=== PATIENT | female | born 1955 | race Caucasian/White ===

== ENCOUNTER 2023-08-29 11:24 | Outpatient (RCR) | payer MEDICARE, OTHER, SELFPAY ==
[2023-08-29 11:35] VITALS: BP 113/65
[2023-08-29] MEDS: XOLAIR 150 MG SC (11:45)
== END 2023-09-17 23:59 | disposition home or self-care (01) ==
LOC: OID 11:24
PROVIDERS: ATTENDING PHYSICIAN Internal Medicine; FAMILY PHYSICIAN Student in an Organized Health Care Education/Training Program
DX: J45.50 Severe persistent asthma, uncomplicated (principal)
CPT/HCPCS: 96372; J2357

== ENCOUNTER → 2023-10-07 16:14 | Outpatient (REF) | payer MEDICARE, OTHER, SELFPAY | LOC: REG 16:14 | PROVIDERS: ATTENDING PHYSICIAN Student in an Organized Health Care Education/Training Program; FAMILY PHYSICIAN Student in an Organized Health Care Education/Training Program | DX: J47.1 Bronchiectasis with (acute) exacerbation (principal) | CPT/HCPCS: 87070; 87071; 87186; 87205 ==

== ENCOUNTER → 2023-10-21 12:52 | Outpatient (REF) | payer MEDICARE, OTHER, SELFPAY | LOC: REG 12:52 | PROVIDERS: ATTENDING PHYSICIAN Student in an Organized Health Care Education/Training Program; FAMILY PHYSICIAN Student in an Organized Health Care Education/Training Program; REFERRING PHYSICIAN Internal Medicine Critical Care Medicine | DX: J47.1 Bronchiectasis with (acute) exacerbation (principal) | CPT/HCPCS: 87015; 87116 ==

== ENCOUNTER → 2023-10-21 16:19 | Outpatient (REF) | payer MEDICARE, OTHER, SELFPAY | LOC: REG 16:19 | PROVIDERS: ATTENDING PHYSICIAN Student in an Organized Health Care Education/Training Program; FAMILY PHYSICIAN Student in an Organized Health Care Education/Training Program; REFERRING PHYSICIAN Internal Medicine Critical Care Medicine | DX: J47.1 Bronchiectasis with (acute) exacerbation (principal) | CPT/HCPCS: 87015; 87116 ==

== ENCOUNTER → 2023-10-23 14:50 | Outpatient (REF) | payer MEDICARE, OTHER, SELFPAY | LOC: REG 14:50 | PROVIDERS: ATTENDING PHYSICIAN Student in an Organized Health Care Education/Training Program; FAMILY PHYSICIAN Student in an Organized Health Care Education/Training Program; OTHER PHYSICIAN Internal Medicine Critical Care Medicine | DX: J47.9 Bronchiectasis, uncomplicated (principal) | CPT/HCPCS: 87015; 87116 ==

== ENCOUNTER → 2023-10-30 12:17 | Outpatient (REF) | payer MEDICARE, OTHER, SELFPAY | LOC: REG 12:17 | PROVIDERS: ATTENDING PHYSICIAN Student in an Organized Health Care Education/Training Program; FAMILY PHYSICIAN Student in an Organized Health Care Education/Training Program | DX: J47.9 Bronchiectasis, uncomplicated (principal) | CPT/HCPCS: 87070; 87205 ==

== ENCOUNTER → 2024-03-15 12:19 | Outpatient (REF) | payer MEDICARE, OTHER, SELFPAY ==
[2024-03-15 14:28] LABS: % Basophils 1.5 % (0-2); % Eosinophils 2.2 % (0-6); % Immature Granulocytes 0.4 % (0-0.5); % Lymphocytes 28.7 % (20.5-51.1); % Monocytes 9.9 % (1.7-9.3); % Neutrophils 57.3 % (42.2-75.2); Absolute Basophils 0.1 10^3/uL (0-0.2); Absolute Eosinophils 0.2 10^3/uL (0-0.7); Absolute Lymphocytes 2.3 10^3/uL (1.2-3.4); Absolute Monocytes 0.8 10^3/uL (0.1-0.6); Absolute Neutrophils 4.6 10^3/uL (1.4-6.5); Hematocrit 42.1 % (37.0-47.0); Hemoglobin 14.3 g/dL (12.0-16.0); Mean Corpuscular Hgb 30.7 pg (27.0-31.0); Mean Corpuscular Volume 90.3 fL (81.0-99.0); Mean Platelet Volume 10.6 fL (7.4-10.4); Nucleated Red Blood Cells % 0 %; Platelet Count 372 10^3/uL (130-400); Red Blood Cell Count 4.66 10^6/uL (4.20-5.40); Red Cell Dist. Width 12.9 % (11.5-14.5); White Blood Cell Count 8.1 10^3/uL (4.8-10.8)
[2024-03-15 14:40] LABS: Microalbumin, Random Urine < 0.6 mg/dl (0.6-1.7)
[2024-03-15 14:52] LABS: ALT (SGPT) 35 U/L (0-35); AST (SGOT) 41 U/L (14-36); Albumin 4.8 g/dl (3.5-5.0); Alkaline Phosphatase 118 U/L (38-126); Blood Urea Nitrogen 18 mg/dl (7-17); Calcium 10.1 mg/dl (8.4-10.2); Carbon Dioxide 34 mmol/L (22-30); Chloride 90 mmol/L (98-107); Glucose 95 mg/dl (70-99); HDL Cholesterol 85 mg/dl; LDL Cholesterol, Calculated 69 mg/dl; Potassium 3.8 mmol/L (3.5-5.1); Sodium 134 mmol/L (135-145); Total Bilirubin 0.3 mg/dl (0.2-1.3); Total Cholesterol 173 mg/dl (50-199); Total Protein 7.4 g/dl (6.3-8.2); Triglyceride 98 mg/dl (10-149); Very Low Density Lipoprotein 19 mg/dl (0-30); eGFR > 60.00
[2024-03-15 15:22] LABS: TSH Reflex To Free T4 1.64 uIU/ml (0.47-4.68)
[2024-03-16 11:12] LABS: Glycohemoglobin (HgbA1c) 6.1 % (4.0-5.6)
== END ==
LOC: REG 12:19
PROVIDERS: ATTENDING PHYSICIAN Student in an Organized Health Care Education/Training Program
DX: Z00.00 Encounter for general adult medical examination without abnormal findings (principal); Z68.28 Body mass index [BMI] 28.0-28.9, adult; E11.9 Type 2 diabetes mellitus without complications; R23.3 Spontaneous ecchymoses
CPT/HCPCS: 36415; 80053; 80061; 82043; 82570; 83036; 84443; 85025

== ENCOUNTER → 2024-04-20 10:24 | Outpatient (REF) | payer MEDICARE, OTHER, SELFPAY | LOC: REG 10:24 | PROVIDERS: ATTENDING PHYSICIAN Student in an Organized Health Care Education/Training Program; FAMILY PHYSICIAN Student in an Organized Health Care Education/Training Program; REFERRING PHYSICIAN Internal Medicine Critical Care Medicine | DX: J47.9 Bronchiectasis, uncomplicated (principal) | CPT/HCPCS: 87116 ==

== ENCOUNTER → 2024-04-21 10:38 | Outpatient (REF) | payer MEDICARE, OTHER, SELFPAY | LOC: MRI 3T 10:38 | PROVIDERS: ATTENDING PHYSICIAN Physician Assistant Surgical; FAMILY PHYSICIAN Student in an Organized Health Care Education/Training Program | DX: M43.16 Spondylolisthesis, lumbar region (principal); M54.16 Radiculopathy, lumbar region; M51.36 Other intervertebral disc degeneration, lumbar region | CPT/HCPCS: 72148 ==

== ENCOUNTER → 2024-04-21 14:08 | Outpatient (REF) | payer MEDICARE, OTHER, SELFPAY | LOC: REG 14:08 | PROVIDERS: ATTENDING PHYSICIAN Student in an Organized Health Care Education/Training Program; FAMILY PHYSICIAN Student in an Organized Health Care Education/Training Program; REFERRING PHYSICIAN Internal Medicine Critical Care Medicine | DX: J47.1 Bronchiectasis with (acute) exacerbation (principal) | CPT/HCPCS: 36415; 87070; 87205 ==

== ENCOUNTER → 2024-05-05 10:44 | Outpatient (REF) | payer MEDICARE, OTHER, SELFPAY | LOC: HWRAD 10:44 | PROVIDERS: ATTENDING PHYSICIAN Internal Medicine Critical Care Medicine; FAMILY PHYSICIAN Student in an Organized Health Care Education/Training Program; REFERRING PHYSICIAN Student in an Organized Health Care Education/Training Program | DX: I47.9 Paroxysmal tachycardia, unspecified (principal) | CPT/HCPCS: 71250 ==

== ENCOUNTER → 2024-06-16 11:23 | Outpatient (REF) | payer MEDICARE, OTHER, SELFPAY | LOC: HWWDC 11:23 | PROVIDERS: ATTENDING PHYSICIAN Obstetrics & Gynecology; FAMILY PHYSICIAN Student in an Organized Health Care Education/Training Program | DX: Z12.31 Encounter for screening mammogram for malignant neoplasm of breast (principal) | CPT/HCPCS: 77063; 77067 ==

== ENCOUNTER → 2024-10-28 09:17 | Outpatient (REF) | payer MEDICARE, OTHER, SELFPAY | LOC: REG 09:17 | PROVIDERS: ATTENDING PHYSICIAN Student in an Organized Health Care Education/Training Program; FAMILY PHYSICIAN Student in an Organized Health Care Education/Training Program | DX: J47.9 Bronchiectasis, uncomplicated (principal) | CPT/HCPCS: 87070; 87116; 87205 ==

== ENCOUNTER → 2024-11-24 14:08 | Outpatient (REF) | payer MEDICARE, OTHER, SELFPAY | LOC: REG 14:08 | PROVIDERS: ATTENDING PHYSICIAN Student in an Organized Health Care Education/Training Program; FAMILY PHYSICIAN Student in an Organized Health Care Education/Training Program | DX: J47.9 Bronchiectasis, uncomplicated (principal) | CPT/HCPCS: 87116 ==

== ENCOUNTER → 2024-11-26 15:24 | Outpatient (REF) | payer MEDICARE, OTHER, SELFPAY | LOC: REG 15:24 | PROVIDERS: ATTENDING PHYSICIAN Student in an Organized Health Care Education/Training Program; FAMILY PHYSICIAN Student in an Organized Health Care Education/Training Program | DX: J47.9 Bronchiectasis, uncomplicated (principal) | CPT/HCPCS: 87116 ==

== ENCOUNTER → 2025-01-17 10:13 | Outpatient (REF) | payer MEDICARE, OTHER, SELFPAY | LOC: HWRAD 10:13 | PROVIDERS: ATTENDING PHYSICIAN Student in an Organized Health Care Education/Training Program | DX: M85.80 Other specified disorders of bone density and structure, unspecified site (principal); Z78.0 Asymptomatic menopausal state | CPT/HCPCS: 77080 ==

== ENCOUNTER → 2025-01-18 10:20 | Outpatient (REF) | payer MEDICARE, OTHER, SELFPAY | LOC: REG 10:20 | PROVIDERS: ATTENDING PHYSICIAN Student in an Organized Health Care Education/Training Program; FAMILY PHYSICIAN Student in an Organized Health Care Education/Training Program | DX: J47.9 Bronchiectasis, uncomplicated (principal) | CPT/HCPCS: 36415; 87116 ==

== ENCOUNTER → 2025-03-10 11:45 | Outpatient (REF) | payer MEDICARE, OTHER, SELFPAY ==
[2025-03-10 12:20] LABS: Hematocrit 41.7 % (37.0-47.0); Hemoglobin 13.9 g/dL (12.0-16.0); Mean Corp Hgb Conc. 33.3 g/dL (33.0-37.0); Mean Corpuscular Volume 91.4 fL (81.0-99.0); Nucleated Red Blood Cells % 0 %; Platelet Count 340 10^3/uL (130-400); Red Cell Dist. Width 12.8 % (11.5-14.5)
[2025-03-10 12:48] LABS: ALT (SGPT) 36 U/L (0-35); AST (SGOT) 34 U/L (14-36); Albumin 4.8 g/dl (3.5-5.0); Alkaline Phosphatase 101 U/L (38-126); Blood Urea Nitrogen 13 mg/dl (7-17); Calcium 10.4 mg/dl (8.4-10.2); Carbon Dioxide 35 mmol/L (22-30); Chloride 91 mmol/L (98-107); Glucose 112 mg/dl (70-99); HDL Cholesterol 84 mg/dl; LDL Cholesterol, Calculated 58 mg/dl; Potassium 3.6 mmol/L (3.5-5.1); Sodium 135 mmol/L (135-145); Total Protein 7.6 g/dl (6.3-8.2); Very Low Density Lipoprotein 24 mg/dl (0-30); eGFR > 60.00
[2025-03-10 12:58] LABS: Glycohemoglobin (HgbA1c) 6.3 % (4.0-5.6)
[2025-03-10 13:33] LABS: Microalb - Urine Creatinine 173.600 mg/dl
[2025-03-10 13:36] LABS: Microalbumin, Random Urine 2.1 mg/dl (0.6-1.7)
== END ==
LOC: REG 11:45
PROVIDERS: ATTENDING PHYSICIAN Student in an Organized Health Care Education/Training Program
DX: E11.9 Type 2 diabetes mellitus without complications (principal); Z68.28 Body mass index [BMI] 28.0-28.9, adult; Z00.00 Encounter for general adult medical examination without abnormal findings; E78.5 Hyperlipidemia, unspecified
CPT/HCPCS: 36415; 80053; 80061; 82043; 82570; 83036; 84443; 85025; 87116

== ENCOUNTER 2025-06-10 19:12 | Emergency (ER) | payer MEDICARE, OTHER, SELFPAY ==
[2025-06-10 19:17] VITALS: BP 127/80
[2025-06-10 19:48] LABS: Hematocrit 42.0 % (37.0-47.0); Hemoglobin 14.0 g/dL (12.0-16.0); Mean Corp Hgb Conc. 33.3 g/dL (33.0-37.0); Mean Corpuscular Volume 92.3 fL (81.0-99.0); Nucleated Red Blood Cells % 0 %; Platelet Count 352 10^3/uL (130-400); Red Cell Dist. Width 13.8 % (11.5-14.5)
[2025-06-10 19:50] VITALS: BMI 31.9
[2025-06-10 20:00] VITALS: BP 137/63
--- NOTE | 2025-06-10 20:05 | ED.GENMED ---
History of Present Illness
General
Chief Complaint: Throat Problem
Source: patient
Time Seen by Provider: 06/10/25 19:55
History of Present Illness
History of Present Illness:
This patient is a 70-year-old female presents emergency department with swelling that she noted in the right superior neck/submandibular area since yesterday that has gotten progressively worse. She denies pain ALTE swallowing, change in voice,
drooling, dental pain or recent dental surgery, fever, chills, nausea, vomiting, chest pain, shortness of breath. She saw her dentist and had a Panorex done which was unremarkable and was started on amoxicillin. She is specific that it was not
Augmentin but just amoxicillin. She has taken 2 doses. Given the increase swelling she went to the urgent care and was referred to the emergency department for further management. She patient denies other symptoms.
Past History
Past History
ED Past Medical History: Asthma, Other (Migraine headaches) and Other (Bronchiectasis)
ED Past Surgical History: Other (Thyroidectomy)
Social History
Tobacco: Former smoker
Alcohol: None
Drug: None
Personal:
Living: with family
Employment: Retired
Phy Exam
Physical Exam
Physical Exam:
GENERAL: Alert , in no apparent distress, nontoxic, very pleasant
EYE: pupils equal and reactive
NECK: Supple, R upper neck/submand area with mild redness/warmth and ttp. No fluctuance, crepitus, open wound, or other abnl
ENT: o/p clr, mmm, voice clear, no trismus, no drool, no submental swelling. No post pharyngl swelling
CARDIAC: Regular rate and rhythm .
LUNGS: Clear breath sounds bilaterally, no acute respiratory distress, no wheezes/rales/rhonchi
ABDOMEN: Soft, without focal tenderness, no r/g, no cvat
NEUROLOGICAL: Alert and oriented, no focal neuro deficits
SKIN: Warm and dry, skin intact.
MUSCULOSKELETAL: No edema, well perfused.
PSYCH: Normal and appropriate interaction.
Course
Orders/Labs/Results
Orders:
Orders
06/10/25 19:39
Complete Blood Count/With Diff Urgent
Comprehensive Metabolic Panel Urgent
06/10/25 19:45
CT Neck With Iv Contrast Urgent
Comment: ordered modified to with contrast per provider
Reason For Exam: submandibular mass
06/10/25 22:11
Clindamycin 900 mg/50 ml [Cleocin] 900 mg in 50 ml IV NOW
Abnormal Lab Results
06/10/25
19:39
Abs Immat Gran (auto) 0.1 H 10^3/uL
(0-0.05)
Absolute Monos (auto) 0.9 H 10^3/uL
(0.1-0.6)
Lymphocytes % 20.0 L %
(20.5-51.1)
Sodium 131 L mmol/L
(135-145)
Potassium 3.4 L mmol/L
(3.5-5.1)
Chloride 93 L mmol/L
(98-107)
Carbon Dioxide 34 H mmol/L
(22-30)
Creatinine 0.5 L mg/dL
(0.6-1.0)
Glucose 105 H mg/dl
(70-99)
06/10/25 19:39
06/10/25 19:39
Vital Signs
Initial and Last Documented VS:
Initial Vital Signs
Temp Pulse Resp BP Pulse Ox
97.8 F 100 20 127/80 98
06/10/25 19:17 06/10/25 19:17 06/10/25 19:17 06/10/25 19:17 06/10/25 19:17
Last Documented Vital Signs
Temp Pulse Resp BP Pulse Ox
97.8 F 103 20 109/73 98
06/10/25 19:17 06/10/25 22:59 06/10/25 22:59 06/10/25 22:59 06/10/25 23:02
*Pulse Oximetry
SaO2: 96
Oxygen Mode of Delivery: Room air
Patient hypoxic: no
*Critical Care Note
Total Time (30-74mins, 75-104mins- exclusive of procedures): Not Applicable
Update Note
Update Note:
Patient presents to the Emergency Department with right-sided neck swelling
Number and Complexity of Problems Addressed at the Encounter
� Chronic conditions affecting care:
� Acute Exacerbation and/or Progression of Chronic Illness:
� Differential Diagnosis includes: But not limited to abscess, mass, salivary gland inflammation or stone, etc. etc.
Amount and/or Complexity of Data to be Reviewed and Analyzed
� I performed an independent evaluation of and my interpretation is:
EKG:
CT:Prominent stranding/edematous changes posterior to the right submandibular area posteriorly with approximate 9.7 x 6.6 x 6.9 mm area of combined central hypodensity and peripheral thickened density. Most likely of
inflammatory/infectious etiology, possibly a lymphoepithelial cystic lesion with accompanying stranding, cannot exclude developing abscess. Some of several additional etiologies such as a low-attenuation mass or necrotic lymph node with accompanying
inflammation cannot be excluded.
Xrays:
Laboratory Studies:mild nonspec electrolyte abnl
Other:
� Review of other/old records reveals:
� Clinical information was obtained by an independent historian:
� Prescriptions/Medications Considered but not given:
� Further testing considered but not performed:
Risk of Complications and/or Morbidity or Mortality of Patient Management
� Social determinants of health affecting care:
� Discussion with other providers (PCP, Hospitalists, Consultants, etc):
� Escalation of care including admission/observation vs risk of discharge considered: Case discussed with Dr. Deal from ENT, agrees with changing medication to clindamycin with close follow-up. She suspects the possibility of
a dental origin which I did communicate to the patient. Patient given a copy of her labs and CAT scan and instructed to discontinue amoxicillin, start clindamycin, cautious and close observation, and close follow-up NAKUL on Friday.
ED Attending Note
-
Portions of this chart may have been created with voice recognition software.� Occasional wrong word or��sound alike� substitutions may have occurred due to the inherent limitations of voice recognition software.
Discharge Plan
Departure
Patient Disposition: Home (Routine Discharge)
Date of Disposition: 06/10/25
Time of Disposition: 22:50
Patient with high blood pressure during this ER visit?: Yes
Condition: Good
Discharge Problem:
Neck swelling
Instructions: BLOOD PRESSURE
Prescriptions:
New
clindamycin HCl [Cleocin HCl] 300 mg capsule
300 mg PO Q6H Qty: 28 0RF
No Action
cetirizine 10 MG tablet
10 mg PO DAILY
pseudoephedrine-guaifenesin [Mucinex D] 1 TABLET tablet extended release 12 hr
1 tab PO BID
ngaaxisvmr-jqbyxhqtnrdyq-vplp 1 TAB tablet
1 - 2 tab PO Q6HPRN PRN (Reason: headache)
zolmitriptan [Zomig] 2.5 MG tablet
2.5 mg PO PRN PRN (Reason: migraine)
Patient Comments:
may repeat in 2 hours
levothyroxine 150 MCG tablet
150 mcg PO DAILY
fluticasone propion-salmeterol [Advair Diskus] 1 DISK blister with device
1 puff inhalation BID
tiotropium bromide [Spiriva with HandiHaler] 18 MCG capsule, w/inhalation device
2 puff PUFF DAILY
Patient Comments:
\\
multivitamin [Daily Vitamin] 1 EACH tablet
1 ea PO DAILY
albuterol sulfate 2.5 MG/3 ML solution for nebulization
2.5 mg inhalation BID
albuterol sulfate 1 PUFF HFA aerosol inhaler
1 puff inhalation R Q4HPRN PRN (Reason: sob)
diphenhydramine HCl 25 MG strip
25 mg PO HS
estradiol [Vagifem] 10 MCG tablet
10 mcg VG .SUNTHURS
Xolair 150 MG recon soln
150 mg SC MONTHLY
Combivent Respimat 1 PUFF mist
1 puff inhalation QID PRN (Reason: sob)
triamterene-hydrochlorothiazid 1 CAPSULE capsule
1 cap PO DAILY
montelukast 10 MG tablet
1 tab PO DAILY
acetaminophen [Tylenol Arthritis Pain] 650 MG tablet extended release
2 tab PO DAILY
fluticasone propionate 1 SPRAY spray,suspension
2 puff intranasal DAILY
famotidine 40 MG tablet
40 mg PO HS
cholecalciferol (vitamin D3) 2,000 UNIT tablet
2,000 unit PO DAILY
clotrimazole 10 MG олег
10 mg PO DAILY PRN (Reason: thrush)
atorvastatin [Lipitor] 10 mg Tablet
5 mg PO HS
Mounjaro 2.5 mg/0.5 mL Pen Injector
5 mg SC QWEEK
Rx Instructions:
saturdays
3%Hypertonic Nebulizer
4 neb continuous nebulization BID
doxycycline hyclate 100 mg Tablet
100 mg PO DAILY PRN (Reason: rosecea)
acetazolamide 250 mg Tablet
125 mg PO DAILY
fluticasone propion-salmeterol [Advair Diskus] 500-50 mcg/dose Blister With Device
1 inh INHALATION BID
Referrals:
Chanel Bird MD [Family Provider, Internal Medicine]
Pema Deal MD [Active, Otology] - Follow up in 2-3 days
Activity Restrictions/Additional Instructions:
PLEASE DISCONTINUE AMOXICILLIN AND BEGIN CLINDAMYCIN IN THE MORNING. IF YOU DEVELOP FEVER, PAIN WITH SWALLOWING, TROUBLE SWALLOWING, CHANGE IN VOICE, INCREASING OR NEW SWELLING, INCREASING OR NEW REDNESS, GET WORSE, DO NOT GET BETTER, OR OTHER
WORRISOME SIGNS, PLEASE RETURN TO THE ER IMMEDIATELY! PLEASE BRING ATTACHED CAT SCAN AND LAB REPORTS TO YOUR DOCTOR IN PROMPT FOLLOW-UP.
Interventions
Interventions:
*Risk Screen - Suicide Last Done: 06/10/25 19:17
*General Assessment Last Done: 06/10/25 19:17
*Neglect/Abuse Screening Last Done: 06/10/25 19:17
*ED- Fall Risk Assessment Last Done: 06/10/25 19:17
*ED COVID-19 Vaccine History Last Done: 06/10/25 19:17
*ED Influenza Vaccine History Last Done: 06/10/25 19:50
*Nursing Disposition Last Done: 06/10/25 23:02
ED-EENT Assessment Last Done: 06/10/25 19:50
ED- Pulmonary Assessment Last Done: 06/10/25 19:50
Discharge Date and Time
Discharge Date/Time: 06/10/25 23:02
Print Language: OCCITAN
[2025-06-10 20:11] LABS: ALT (SGPT) 30 U/L (0-35); AST (SGOT) 31 U/L (14-36); Albumin 4.6 g/dl (3.5-5.0); Alkaline Phosphatase 120 U/L (38-126); Blood Urea Nitrogen 10 mg/dl (7-17); Calcium 10.0 mg/dl (8.4-10.2); Carbon Dioxide 34 mmol/L (22-30); Chloride 93 mmol/L (98-107); Estimated Creatinine Clearance 78 ml/min; Glucose 105 mg/dl (70-99); Potassium 3.4 mmol/L (3.5-5.1); Sodium 131 mmol/L (135-145); Total Protein 7.5 g/dl (6.3-8.2); eGFR > 60.00
[2025-06-10] MEDS: CLEOCIN 50 IV (22:22)
[2025-06-10 22:59] VITALS: BP 109/73
== END 2025-06-10 23:02 | disposition home or self-care (01) ==
LOC: EMR 19:12
PROVIDERS: Emergency Medicine; EMERGENCY PHYSICIAN Emergency Medicine; FAMILY PHYSICIAN Student in an Organized Health Care Education/Training Program
DX: R22.1 Localized swelling, mass and lump, neck (principal); J45.909 Unspecified asthma, uncomplicated; Z87.891 Personal history of nicotine dependence
CPT/HCPCS: 99284; 70491; 80053; 85025; Q9967

== ENCOUNTER → 2025-06-20 11:52 | Outpatient (REF) | payer MEDICARE, OTHER, SELFPAY | LOC: HWWDC 11:52 | PROVIDERS: ATTENDING PHYSICIAN Obstetrics & Gynecology; FAMILY PHYSICIAN Student in an Organized Health Care Education/Training Program; REFERRING PHYSICIAN Internal Medicine | DX: Z12.31 Encounter for screening mammogram for malignant neoplasm of breast (principal); K11.20 Sialoadenitis, unspecified; K11.7 Disturbances of salivary secretion | CPT/HCPCS: 36415; 77063; 77067; 86038; 86235 ==

== ENCOUNTER → 2025-07-08 14:21 | Outpatient (REF) | payer MEDICARE, OTHER, SELFPAY | LOC: HWRAD 14:21 | PROVIDERS: ATTENDING PHYSICIAN Otolaryngology; FAMILY PHYSICIAN Student in an Organized Health Care Education/Training Program | DX: K11.21 Acute sialoadenitis (principal) | CPT/HCPCS: 70492; Q9967 ==